=== PATIENT | male | born 1940 | race Hispanic/Latino ===

== ENCOUNTER 2017-08-02 21:30 | Inpatient (IN) | payer BC, MEDICARE ==
--- NOTE | 2017-08-02 22:05 | ED PDOC ---
Arrival/HPI - General Chief Complaint: Weakness/Neurological Deficit Time Seen by Provider: 08/02/17 21:35 Historian: Patient - History of Present Illness Narrative History of Present Illness (Text): 08/02/17 22:05 A 76 year old male, whose past medical history includes stroke, was brought in by EMS to the emergency department complaining of left sided weakness and numbness that developed 6 hours ago. Patient reports symptoms improved. Patient denies any fever, any other injury or complaints at this time. PMD: Dr. Ward Time/Duration: 4-6 hours Symptom Onset: Sudden Symptom Course: Unchanged Activities at Onset: Rest Context: Home Past Medical History - Provider Review Nursing Documentation Reviewed: Yes - Infectious Disease Hx of Infectious Diseases: None - Tetanus Immunization Tetanus Immunization: Unknown - Cardiac Hx Hypertension: Yes - Neurological HX Cerebrovascular Accident: Yes - HEENT Other/Comment: uses reading glasses - Endocrine/Metabolic Hx Diabetes Mellitus Type 1: Yes - Musculoskeletal/Rheumatological Hx Falls: No - Psychiatric Hx Substance Use: No - Surgical History Hx Cardiac Catheterization: Yes Hx Open Heart Surgery: Yes (2007) - Anesthesia Hx Anesthesia Reactions: No Hx Malignant Hyperthermia: No - Suicidal Assessment Feels Threatened In Home Enviroment: No Family/Social History - Physician Review Nursing Documentation Reviewed: Yes Family/Social History: No Known Family HX Smoking Status: Never Smoked Hx Alcohol Use: No Hx Substance Use: No Allergies/Home Meds Allergies/Adverse Reactions: Allergies No Known Allergies Allergy (Verified 10/15/13 22:17) Home Medications: Home Meds Medication Instructions Recorded Confirmed Glipizide 10 mg PO BID 10/16/13 08/02/17 MetFORMIN [glucoPHAGE] 1,000 mg PO BID 10/16/13 08/02/17 Metoprolol Tartrate 25 mg PO DAILY 10/16/13 08/02/17 Simvastatin 40 mg PO DAILY 10/16/13 08/02/17 Clopidogrel [Plavix] 75 mg PO DAILY 07/14/14 08/02/17 Insulin Detemir [Levemir] 20 units SQ DIN 08/02/17 08/02/17 Losartan [Cozaar] 25 mg PO DAILY 08/02/17 08/02/17 Review of Systems - Physician Review All systems were reviewed & negative as marked: Yes - Review of Systems Constitutional: absent: Fevers Neurological: Other (left sided weakness and numbness) Physical Exam Vital Signs Reviewed: Yes Vital Signs Temp Pulse Resp BP Pulse Ox 08/03/17 00:23 98.5 F 88 18 155/81 H 96 08/02/17 22:55 85 20 170/99 H 94 L 08/02/17 21:31 98.1 F 101 H 18 177/97 H 94 L Temperature: Afebrile Blood Pressure: Hypertensive Pulse: Tachycardic Respiratory Rate: Normal Appearance: Positive for: Well-Appearing, Non-Toxic, Comfortable Pain Distress: None Mental Status: Positive for: Alert and Oriented X 3 Finger Stick Blood Glucose: 254 - Systems Exam Head: Present: Atraumatic, Normocephalic Pupils: Present: PERRL Extroacular Muscles: Present: EOMI Conjunctiva: Present: Normal Mouth: Present: Moist Mucous Membranes Neck: Present: Normal Range of Motion Respiratory/Chest: Present: Clear to Auscultation, Good Air Exchange. No: Respiratory Distress, Accessory Muscle Use Cardiovascular: Present: Regular Rate and Rhythm, Normal S1, S2. No: Murmurs Abdomen: Present: Normal Bowel Sounds. No: Tenderness, Distention, Peritoneal Signs Back: Present: Normal Inspection Upper Extremity: Present: Normal Inspection. No: Cyanosis, Edema Lower Extremity: Present: Normal Inspection. No: Edema Neurological: Present: GCS=15, CN II-XII Intact, Speech Normal, Motor Func Grossly Intact, Normal Sensory Function, Normal Cerebellar Funct, Norm Deep Tendon Reflexes, Gait Normal, Memory Normal Skin: Present: Warm, Dry, Normal Color. No: Rashes Psychiatric: Present: Alert, Oriented x 3, Normal Insight, Normal Concentration Medical Decision Making ED Course and Treatment: 08/02/17 22:03 Impression: A 76 year old male with left sided weakness and numbness. Plan: -- EKG -- chest xray -- CT head -- labs -- Reassess and disposition Prior Visits: Notes and results from previous visits were reviewed. Patient last reported to the emergency department on 07/14/14 for evaluation of increased slurred speech and expressive aphasia. Progress Notes: EKG: Ordered, reviewed, and independently interpreted the EKG. Rate : 90 BPM Rhythm : NSR Interpretation : Nonspecific ST/T wave changes Comparison : No previous EKG for comparison. Addendum created by Ashleigh Harrell MD on 08/02/2017 10:15 PM Eastern Time ([place] & [place]) THIS REPORT CONTAINS FINDINGS THAT MAY BE CRITICAL TO PATIENT CARE. The findings were verbally communicated via telephone conference with Armond Waters at 10:15 PM EDT on 08/02/2017. The findings were acknowledged and understood. Initial Report created on 08/02/2017 10:04 PM Eastern Time ([place] & [place]) CT Head Without Intravenous Contrast FINDINGS: Brain: No acute intracranial hemorrhage. Age-appropriate periventricular white matter disease. No edema. Ventricles: Age-appropriate ventriculomegaly. Bones: No acute displaced fracture. Sinuses: Unremarkable as visualized. No acute sinusitis. Mastoid air cells: Unremarkable as visualized. No mastoid effusion. IMPRESSION: No acute intracranial hemorrhage, or suspicious mass effect. Dictated and Authenticated by: Ashleigh Harrell MD 08/02/2017 10:04 PM Eastern Time ([place] & [place]) 08/03/17 22:30 Chest xray: No active disease, interpreted by me. - Lab Interpretations Lab Results: 08/02/17 21:50 08/02/17 21:50 Lab Results 08/02/17 22:25: Blood Type Confirm B POSITIVE 08/02/17 21:50: Blood Type B POSITIVE, Antibody Screen Negative, BBK History Checked No verified bt 08/02/17 21:50: Sodium 136, Potassium 4.2, Chloride 99, Carbon Dioxide 24, Anion Gap 17, BUN 12, Creatinine 0.7 L, Est GFR ( Amer) > 60, Est GFR ( Non-Af Amer) > 60, Random Glucose 254 H, Calcium 9.3, Total Bilirubin 0.6, AST 26, ALT 49, Alkaline Phosphatase 80, Troponin I < 0.01, Total Protein 7.0, Albumin 4.3, Globulin 2.8, Albumin/Globulin Ratio 1.5, Triglycerides 156, Cholesterol 128 L, LDL Cholesterol Direct 56, HDL Cholesterol 42 08/02/17 21:50: PT 11.7, INR 1.08, APTT 26.6 08/02/17 21:50: WBC 7.5, RBC 4.85, Hgb 14.5, Hct 41.3 L, MCV 85.2, MCH 29.9, MCHC 35.1, RDW 12.7, Plt Count 228, MPV 9.3, Gran % 70.8 H, Lymph % (Auto) 21.1 L, [place] % (Auto) 6.1 H, Eos % (Auto) 1.9, Baso % (Auto) 0.1, Gran # 5.32, Lymph # 1.6, [place] # 0.5, Eos # 0.1, Baso # 0.01 I have reviewed the lab results: Yes - RAD Interpretation Radiology Orders: 08/02/17 21:36 HEAD W/O (CODE STROKE) [CT] Stat CHEST ONE VIEW [RAD] Stat - EKG Interpretation Interpreted by ED Physician: Yes Type: 12 lead EKG - Medication Orders Current Medication Orders: Aspirin (Aspirin Chewable) 81 mg PO DAILY YASMEEN Atorvastatin Calcium (Lipitor) 20 mg PO DIN YASMEEN Clopidogrel Bisulfate (Plavix) 75 mg PO DAILY YASMEEN Insulin Detemir (Levemir) 20 unit SC HS YASMEEN Insulin Human Lispro (Humalog Med) 0 units SC ACHS YASMEEN PRN Reason: Protocol Losartan Potassium (Cozaar) 25 mg PO DAILY YASMEEN Metoprolol Tartrate (Lopressor) 25 mg PO DAILY YASMEEN Pantoprazole Sodium (Protonix Inj) 40 mg IVP DAILY YASMEEN Discontinued Medications Aspirin (Aspirin) 325 mg PO STAT STA Stop: 08/02/17 22:49 Last Admin: 08/02/17 22:59 Dose: 325 mg - Scribe Statement The provider has reviewed the documentation as recorded by the Bossmanibjordon Qiu All medical record entries made by the Bossmanibjordon were at my direction and personally dictated by me. I have reviewed the chart and agree that the record accurately reflects my personal performance of the history, physical exam, medical decision making, and the department course for this patient. I have also personally directed, reviewed, and agree with the discharge instructions and disposition. Disposition/Present on Arrival - Present on Arrival Any Indicators Present on Arrival: No History of DVT/PE: No History of Uncontrolled Diabetes: Yes Urinary Catheter: No History of Decub. Ulcer: No History Surgical Site Infection Following: None - Disposition Have Diagnosis and Disposition been Completed?: Yes Diagnosis: Weakness Disposition: HOSPITALIZED Disposition Time: 12:00 Condition: FAIR
--- NOTE | 2017-08-02 22:05 | CT ---
EXAM: CT Head Without Intravenous Contrast CLINICAL HISTORY: 76 years old, male; Signs and symptoms; Weakness, extremity; Bilateral; Additional info: Code stroke TECHNIQUE: Axial computed tomography images of the head/brain without intravenous contrast. All CT scans at this facility use one or more dose reduction techniques, viz.: automated exposure control; ma/kV adjustment per patient size (including targeted exams where dose is matched to indication; i.e. head); or iterative reconstruction technique. COMPARISON: No relevant prior studies available. FINDINGS: Brain: No acute intracranial hemorrhage. Age-appropriate periventricular white matter disease. No edema. Ventricles: Age-appropriate ventriculomegaly. Bones: No acute displaced fracture. Sinuses: Unremarkable as visualized. No acute sinusitis. Mastoid air cells: Unremarkable as visualized. No mastoid effusion. IMPRESSION: No acute intracranial hemorrhage, or suspicious mass effect.
[2017-08-02 22:10] LABS: BASO # 0.01 K/mm3 (0.0-2.0); BASO % 0.1 % (0.0-3.0); EOS # 0.1 (0.0-0.7); EOS % 1.9 % (1.5-5.0); GRAN # 5.32 (1.4-6.5); GRAN % 70.8 % (50.0-68.0); HEMATOCRIT 41.3 % (42.0-52.0); LYMPH # 1.6 (1.2-3.4); LYMPH % 21.1 % (22.0-35.0); MEAN CELL VOLUME 85.2 fl (80.0-105.0); MEAN CORPUSCULAR HEMOGLOBIN 29.9 pg (25.0-35.0); MEAN CORPUSCULAR HGB CONC 35.1 g/dl (31.0-37.0); MEAN PLATELET VOLUME 9.3 fl (7.0-11.0); MONO # 0.5 (0.1-0.6); MONO % 6.1 % (1.0-6.0); RED CELL DISTRIBUTION WIDTH 12.7 % (11.5-14.5); WHITE BLOOD COUNT 7.5 10^3/ul (4.5-11.0)
[2017-08-02 22:23] LABS: ALB/GLOB RATIO 1.5 (1.1-1.8); ALKALINE PHOSPHATASE 80 U/L (38-126); ALT/SGPT 49 U/L (7-56); AST/SGOT 26 U/L (17-59); BILIRUBIN,TOTAL 0.6 mg/dL (0.2-1.3); BLOOD UREA NITROGEN 12 mg/dL (7-21); CALCIUM 9.3 mg/dL (8.4-10.5); CARBON DIOXIDE 24 mmol/L (21-33); CHLORIDE 99 mmol/L (98-107); CHOLESTEROL 128 mg/dL (130-200); GFR AFRICAN-AMERICAN > 60; GLUCOSE,RANDOM 254 mg/dL (70-110); POTASSIUM 4.2 mmol/L (3.6-5.0); SODIUM 136 mmol/L (132-148)
[2017-08-02 22:32] LABS: INR 1.08 (0.93-1.08); PARTIAL THROMBOPLASTIN TIME 26.6 Seconds (23.7-30.8)
[2017-08-02 22:38] LABS: TROPONIN I < 0.01 ng/mL
[2017-08-02 23:24] VITALS: BMI 31.8
[2017-08-02] MEDS ORDERED: Insulin Detemir 100 units/ml Vial (Levemir) SC SCH (23:45)
--- NOTE | 2017-08-02 23:52 | CP.PCM.HP ---
<SULMEAN RHODES - Last Filed: 08/03/17 01:42> History of Present Illness - History of Present Illness History of Present Illness: CC: Left arm and leg weakness Pt is a 76 yo male with PMH of multiple CVA and DM presents with c/o left arm and leg weakness as well as gait instability. Pt states symptoms began around 4 pm on 08/02/17. Pt was unable to ambulate or stand without losing balance due to left leg weakness. However, weakness got worse by 8:30 pm and called for an ambulance. Pt believed the symptoms would subside with rest. Pt denied any facial droop, slurring of speech, aphasia, dysphagia, or vision changes. At time of examination in the ED, pt states that he felt like his strength had somewhat returned. Pt denied CP, SOB, n/v/d, constipation, abdominal pain, SHIRLEY, dizziness, or fatigue. 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 Retired police inspector. FHx: Cerebral hemorrhage Present on Admission - Present on Admission Any Indicators Present on Admission: No Review of Systems - Review of Systems Review of Systems: 12 point ROS reviewed and is negative other than what is stated in HPI. Past Patient History - Infectious Disease Hx of Infectious Diseases: None - Tetanus Immunizations Tetanus Immunization: Unknown - Past Social History Smoking Status: Never Smoked - CARDIAC Hx Hypertension: Yes - NEUROLOGICAL HX Cerebrovascular Accident: Yes - HEENT Other/Comment: uses reading glasses - ENDOCRINE/METABOLIC Hx Diabetes Mellitus Type 1: Yes - MUSCULOSKELETAL/RHEUMATOLOGICAL Hx Falls: No - PSYCHIATRIC Hx Substance Use: No - SURGICAL HISTORY Hx Cardiac Catheterization: Yes Hx Open Heart Surgery: Yes (2007) - ANESTHESIA Hx Anesthesia Reactions: No Hx Malignant Hyperthermia: No Meds Allergies/Adverse Reactions: Allergies Allergy/AdvReac Type Severity Reaction Status Date / Time No Known Allergies Allergy Verified 10/15/13 22:17 Physical Exam - Constitutional Appears: No Acute Distress - Head Exam Head Exam: ATRAUMATIC, NORMOCEPHALIC - Eye Exam Eye Exam: EOMI, PERRL - ENT Exam ENT Exam: Mucous Membranes Moist - Neck Exam Neck exam: Positive for: Full Rom. Negative for: Lymphadenopathy, Tenderness, Thyromegaly - Respiratory Exam Respiratory Exam: Clear to Auscultation Bilateral. absent: Rales, Rhonchi, Wheezes - Cardiovascular Exam Cardiovascular Exam: RRR, +S1, +S2. absent: Diastolic murmur, Gallop, Rubs, Systolic Murmur - GI/Abdominal Exam GI & Abdominal Exam: Soft. absent: Distended, Guarding, Rebound, Rigid, Tenderness - Neurological Exam Neurological exam: Alert, Oriented x3 - Psychiatric Exam Psychiatric exam: Normal Affect, Normal Mood - Skin Skin Exam: Dry, Intact, Normal Color, Petechiae, Warm Additional comments: Purpura Results - Vital Signs Recent Vital Signs: Last Vital Signs Temp 98.1 F 08/02/17 21:31 Pulse 85 08/02/17 22:55 Resp 20 08/02/17 22:55 BP 170/99 H 08/02/17 22:55 Pulse Ox 94 L 08/02/17 22:55 - Labs Result Diagrams: 08/02/17 21:50 08/02/17 21:50 Assessment & Plan - Assessment and Plan (Free Text) Assessment: 76 yo male with PMH of CVA and DM presents with left sided weakness and will be evaluated and treated for TIA. Plan: 1. TIA - CT head showed no acute process - EKG showed NSR - Troponin negative x1 - Neuro consulted - F/u Lipid panel and A1C - Cont Home meds: Plavix, Simvastatin - ASA 2. DM - Blood Glucose 254 - Levemir 20 units HS - ISS - Accuchecks ACHS - Hold metoprolol and glipizide 3. HTN - Cont home med: Losartan and Lopressor GI/DVT PPx - Protonix - SCDs Pt seen and discussed with Dr. Cordova. Tito Rhodes, PGY1 NIHSS Scale ([place]) Time Performed: 23:30 - How Severe is the Stoke 24 hours post onset S/S Level of Consciousness: 0=Alert LOC to Questions: 0=Both comments correct LOC to commands: 0=Obeys both correctly Best Gaze: 0=Normal Visual: 0=No visual loss Facial: 0=Normal Motor Arm - Left: 0=No drift Motor Arm - Right: 0=No drift Motor Leg - Left: 0=No drift Motor Leg - Right: 0=No drift Limb Ataxia: 0=Absent Sensory: 0=Normal Best Language: 0=No aphasia Dysarthia: 0=Normal articulation Extinction & Inattention (Neglect): 0=Normal, no object Score: 0 Risk Level: No Stroke Risk <Giovanna Cordova - Last Filed: 08/03/17 04:55> Results - Vital Signs Recent Vital Signs: Last Vital Signs Temp 97.7 F 08/03/17 01:27 Pulse 89 08/03/17 01:27 Resp 18 08/03/17 01:27 BP 180/96 H 08/03/17 01:27 Pulse Ox 96 08/03/17 00:23 - Labs Result Diagrams: 08/02/17 21:50 08/02/17 21:50 Attending/Attestation - Attestation I have personally seen and examined this patient.: Yes I have fully participated in the care of the patient.: Yes I have reviewed all pertinent clinical information: Yes Notes (Text): 08/03/17 03:39 Pt has no purpura.. NIHSS scale was initially performed by ER MD at 21:35 PM when pt was seen in the ER Since pt's symptoms have resolved,he is not a candidate for TPA. Agree with notes and orders placed 08/03/17 04:55
[2017-08-03 06:37] LABS: HEMATOCRIT 40.4 % (42.0-52.0); MEAN CELL VOLUME 84.3 fl (80.0-105.0); MEAN CORPUSCULAR HEMOGLOBIN 30.1 pg (25.0-35.0); MEAN CORPUSCULAR HGB CONC 35.6 g/dl (31.0-37.0); MEAN PLATELET VOLUME 9.5 fl (7.0-11.0); RED CELL DISTRIBUTION WIDTH 12.9 % (11.5-14.5); WHITE BLOOD COUNT 9.7 10^3/ul (4.5-11.0)
[2017-08-03 06:46] LABS: ALB/GLOB RATIO 1.5 (1.1-1.8); ALKALINE PHOSPHATASE 71 U/L (38-126); ALT/SGPT 49 U/L (7-56); AST/SGOT 26 U/L (17-59); BILIRUBIN,TOTAL 0.7 mg/dL (0.2-1.3); BLOOD UREA NITROGEN 11 mg/dL (7-21); CALCIUM 9.4 mg/dL (8.4-10.5); CARBON DIOXIDE 28 mmol/L (21-33); CHLORIDE 100 mmol/L (98-107); GFR AFRICAN-AMERICAN > 60; GLUCOSE,RANDOM 257 mg/dL (70-110); MAGNESIUM 1.4 mg/dL (1.7-2.2); PHOSPHOROUS 3.9 mg/dL (2.5-4.5); POTASSIUM 4.1 mmol/L (3.6-5.0); SODIUM 138 mmol/L (132-148); TOTAL PROTEIN 6.8 g/dL (5.8-8.3)
[2017-08-03] MEDS ORDERED: Magnesium Sulfate 2 GM in Sodium Chloride 0.9% 100 ML IVPB ONE (06:49)
--- NOTE | 2017-08-03 08:39 | RAD ---
PROCEDURE: CHEST RADIOGRAPH, 1 VIEW HISTORY: code stroke COMPARISON: 07/14/2014 FINDINGS: LUNGS: Clear. PLEURA: No pneumothorax or pleural fluid seen. CARDIOVASCULAR: Normal. OSSEOUS STRUCTURES: No significant abnormalities. VISUALIZED UPPER ABDOMEN: Normal. OTHER FINDINGS: None. IMPRESSION: No active disease.
[2017-08-03] MEDS: Insulin Lispro (humaLOG) MEDIUM Coverage SC SCH ×4 (09:38→21:29)
[2017-08-03] MEDS ORDERED: Insulin Detemir 100 units/ml Vial (Levemir) SC SCH (10:42)
--- NOTE | 2017-08-03 13:51 | US ---
PROCEDURE: Bilateral carotid artery duplex ultrasound HISTORY: Carotid stenosis TIA PHYSICIAN(S): Aakash Garcia MD. TECHNIQUE: Duplex sonography and color-flow Doppler were used to evaluate the carotid bifurcations and limited segments of the vertebral arteries bilaterally. FINDINGS: There is mild smooth echogenic plaque noted at the carotid bifurcations bilaterally. The peak systolic velocity in the proximal right internal carotid artery is 79 cm/sec. This corresponds to a 20 to 39% proximal right ICA stenosis. Normal systolic velocities are noted in the proximal right external carotid artery. There is antegrade flow in the large right vertebral artery. The peak systolic velocity in the proximal left internal carotid artery is 58 cm/sec. This corresponds to a 20 to 39% proximal left ICA stenosis. Mildly elevated systolic velocities are noted in the proximal left external carotid artery. There is blunted antegrade flow in the small left vertebral artery. IMPRESSION: 1. Bilateral 20-39% proximal ICA stenoses. 2. Antegrade flow in both vertebral arteries.
--- NOTE | 2017-08-03 15:22 | CARD ---
APPROVED REPORT EXAM: Two-dimensional and M-mode echocardiogram with Doppler and color Doppler. INDICATION CVA/TIA HX OF CABG 2D DIMENSIONS Left Atrium (2D)4.9 (1.6-4.0cm)IVSd1.5 (0.7-1.1cm) LVDd5.0 (3.9-5.9cm)LVOT Diameter2.1 (1.8-2.4cm) PWd1.5 (0.7-1.1cm)LVDs3.4 (2.5-4.0cm) FS (%) 31.9 %LVEF (%)59.7 (>50%) M-Mode DIMENSIONS Aortic Root3.90 (2.2-3.7cm)Aortic Cusp Exc.0.70 (1.5-2.0cm) Aortic Valve AoV Peak Uzbmljif531.0cm/sAoV VTI59.7cmAO Peak GR.29mmHg LVOT Peak Ipgkeldv94.2cm/sLVOT VTI20.30cmAO Mean GR.16mmHg JOSEFA (VMAX)1.38qw2DHX (VTI)1.18cm2 Mitral Valve MV E Hceapvtr77.9cm/sMV A Zqdvzovi505.0cm/sE/A ratio0.7 TDI Lateral E' Peak V6.82cm/sMedial E' Peak V4.29cm/sE/Lateral E'12.3 E/Medial E'19.6 Pulmonary Valve PV Peak Lgdgpuil89.1cm/sPV Peak Grad.2mmHg Tricuspid Valve TR Peak Boygzfez043wt/sRAP [id number] Peak Gr.17mmHg [id number] LEFT VENTRICLE The left ventricle is normal size. There is mild concentric left ventricular hypertrophy. The left ventricular ejection fraction is within the normal range. Mild Septal hypokinesis Transmitral Doppler flow pattern is Grade I-abnormal relaxation pattern. RIGHT VENTRICLE The right ventricle is normal size. There is normal right ventricular wall thickness. The right ventricular systolic function is normal. ATRIA The left atrium is mildly dilated. The right atrium size is normal. AORTIC VALVE The aortic valve is moderately sclerotic. There is mild to moderate valvular aortic stenosis. MITRAL VALVE Mitral annular calcification is moderate. There is no mitral valve regurgitation noted. GREAT VESSELS The aortic root is mildly enlarged. <Conclusion> The left ventricle is normal size. There is mild concentric left ventricular hypertrophy. The left ventricular ejection fraction is within the normal range. Mild Septal hypokinesis Transmitral Doppler flow pattern is Grade I-abnormal relaxation pattern. There is mild to moderate valvular aortic stenosis.
--- NOTE | 2017-08-03 18:41 | MRI ---
PROCEDURE: MRI BRAIN WITHOUT CONTRAST HISTORY: TIA r/o CVA COMPARISON: Comparison is made to the previous study dated 07/15/2014 TECHNIQUE: Multiplanar, multisequence MR images of the brain were obtained without intravenous contrast enhancement. FINDINGS: HEMORRHAGE: None DWI: 1 centimeter focal diffusion restriction at the right thalamus consistent with acute infarction. BRAIN PARENCHYMA: No mass effect or edema. Mild atrophy. Moderate white matter changes are again noted suggestive of chronic microvascular ischemic disease. Small foci of encephalomalacia are also noted in both basal ganglia suggestive of old lacunar infarctions VENTRICLES: Unremarkable. No hydrocephalus. CRANIUM: Unremarkable. ORBITS: Grossly unremarkable. PARANASAL SINUSES/MASTOIDS: Clear VASCULAR SYSTEM: Skull base flow voids intact. OTHER FINDINGS: None. IMPRESSION: 1 centimeter focal diffusion restriction at the right thalamus consistent with acute infarction. Volume loss and moderate white matter changes are again noted.
--- NOTE | 2017-08-03 22:05 | CARD ---
APPROVED REPORT EKG Measurement Heart [id number] <Conclusion> Normal sinus rhythm Possible Left atrial enlargement Inferior infarct, age undetermined Abnormal ECG
--- NOTE | 2017-08-03 22:07 | CON ---
NEUROLOGY CONSULTATION REPORT REASON FOR CONSULTATION: Left-sided weakness. HISTORY OF PRESENT ILLNESS: The patient is a 76-year-old male who came to the emergency room with weakness on the left side. really having difficulty with walking. The patient has a history of stroke in the past. However, he recovered from it completely. The patient's symptoms started around 4 p.m. The patient was unable to ambulate without loosing balance and since his weakness was not getting better, he decided to come to the emergency room. He got to the hospital after 8:30 p.m. The patient denies any difficulty with swallowing. He says he thinks his weakness of the left arm is better; however, he is not sure about his left lower leg. Denies any other complaints. REVIEW OF SYSTEMS: Denies any headache, dizziness, chest pain, shortness of breath, abdominal pain, constipation, diarrhea, dysuria, cough, sputum production, hallucination, or skin rash. PAST MEDICAL HISTORY: Include cerebrovascular accident, diabetes mellitus. MEDICATION AT HOME: Include Cozaar, Plavix, simvastatin, metoprolol, metformin, insulin, and glipizide. ALLERGIES: NO KNOWN DRUG ALLERGIES. SOCIAL HISTORY: The patient denies smoking, use of alcohol, or illicit drugs. FAMILY HISTORY: Reviewed and noncontributory to the case. PHYSICAL EXAMINATION: GENERAL: The patient is an elderly male, lying in the bed, in no acute distress. VITAL SIGNS: His blood pressure is 195/105, heart rate is 99 per minute, breathing at a rate of 16 per minute, and temperature is 97.8 degrees Fahrenheit. HEENT: Head, normocephalic and atraumatic. NECK: Supple. There is no carotid bruit. LUNGS: Clear. CARDIOVASCULAR: S1 and S2 audible. No murmurs. ABDOMEN: Soft and nontender. Bowel sounds are present. NEUROLOGIC: Mental status; the patient is awake, alert, and oriented to place, year and person. Speech is fluent. Naming and repetition are normal. Memory and cognition appears intact. Cranial nerve examination: Pupils are 3 mm bilaterally reactive to light. Visual cohn are full . Extraocular movements are intact. There is questionable decrease in the nasolabial fold on the left side. Motor examination: Tone is normal. Power in the upper extremities are 5/5. Power in the lower extremity on the right is 5/5, on the left is 4/5. Reflexes are 1+ and symmetrical with absent ankle jerk. Planters are downgoing bilaterally. Cerebellar examination: Uhtrwe-cu-slui showed no dysmetria. Gait is deferred at the moment. Sensory Examination: Intact to soft touch and pinprick. There is mild decrease vibration in feet. LABORATORY DATA: Reviewed. CT scan of the head shows no acute intracranial hemorrhage or suspicious mass effect. His WBC is 9.7, hemoglobin is 14.4, hematocrit of 40.4, and platelets of 227. His sodium is 138, potassium 4.1, chloride of 100, carbon dioxide content 28, BUN of 11, creatinine of 0.7, and glucose of 257. His INR is 1.08. IMPRESSION: 1. New-onset of left-side weakness, which has improved, but not completely resolved. This may have been secondary to a small new cerebrovascular accident. 2. History of old cerebrovascular accident. RECOMMENDATIONS: 1. The patient to have MRI of the brain without contrast. 2. The patient also to have a carotid Doppler study and an echocardiogram. 3. The patient was on Plavix, which is to be continued. A baby aspirin is to be added. 4. The patient was started on statin, which is to be continued. 5. The patient was not a candidate for tPA administration because of out of time as well as resolving symptoms. 6. The patient to have physical therapy and occupational therapy evaluation. 7. Please continue with the treatment and if blood pressure remains on a higher side, consider increasing the dose of antihypertensive medication and try to control the blood pressure. 8. Please continue with the treatment and supportive care. Thank you for the opportunity to participate in the care of this patient. Jaime Pearson MD
[2017-08-04] MEDS: Pantoprazole 40 mg EC Tab PO SCH (05:20)
[2017-08-04] MEDS ORDERED: Insulin Detemir 100 units/ml Vial (Levemir) SC SCH ×2 (06:40→09:13)
--- NOTE | 2017-08-04 06:54 | CP.PCM.PN ---
<Yaritza Ocampo - Last Filed: 08/04/17 15:37> Subjective - Date & Time of Evaluation Date of Evaluation: 08/04/17 Time of Evaluation: 06:54 - Subjective Subjective: Hospitalist Service Progress Note: Patient seen and examined at bedside. Per nursing, no acute events overnight. Patient is doing well, offers no complaints at this time. States that speech is slowing improving, left sided weakness also improving. Denies headaches, dizziness, cp, palpitations, sob, abdominal pain, urinary symptoms, changes in bowel habits. Objective - Vital Signs/Intake and Output Vital Signs (last 24 hours): Temp Pulse Resp BP Pulse Ox 98.3 F 76 18 162/90 H 95 08/03/17 16:00 08/03/17 22:00 08/03/17 16:00 08/03/17 16:00 08/03/17 16:00 Intake and Output: 08/03/17 08/04/17 18:59 06:59 Intake Total 540 300 Output Total 600 550 Balance -60 -250 - Medications Medications: Current Medications Aspirin (Aspirin Chewable) 81 mg PO DAILY [facility] Last Admin: 08/03/17 09:34 Dose: 81 mg Atorvastatin Calcium (Lipitor) 40 mg PO DIN [facility], [facility] Last Admin: 08/03/17 17:56 Dose: 40 mg Clopidogrel Bisulfate (Plavix) 75 mg PO DAILY [facility], [facility] Last Admin: 08/03/17 09:36 Dose: 75 mg Enoxaparin Sodium (Lovenox) 30 mg SC DAILY [facility], [facility]1983 PRN Reason: Protocol Insulin Detemir (Levemir) 27 unit SC HS [facility]1983 Insulin Human Lispro (Humalog Med) 0 units SC [facility], [facility]–1983 PRN Reason: Protocol Last Admin: 08/03/17 21:29 Dose: Not Given Losartan Potassium (Cozaar) 50 mg PO DAILY [facility] Last Admin: 08/03/17 12:18 Dose: 25 mg Metoprolol Tartrate (Lopressor) 50 mg PO BID [facility] Last Admin: 08/03/17 17:56 Dose: 50 mg Pantoprazole Sodium (Protonix Ec Tab) 40 mg PO 0600 [facility] Last Admin: 08/04/17 05:20 Dose: 40 mg Pneumococcal Polyvalent Vaccine (Pneumovax 23 Vaccine) 0.5 ml IM .ONCE ONE Stop: 08/05/17 10:01 - Labs Labs: 08/03/17 06:00 08/03/17 06:00 PT 11.7 Seconds (9.9-11.8) 08/02/17 21:50 INR 1.08 (0.93-1.08) 08/02/17 21:50 APTT 26.6 Seconds (23.7-30.8) 08/02/17 21:50 - Constitutional Appears: Well, No Acute Distress - Head Exam Head Exam: ATRAUMATIC, NORMAL INSPECTION - Eye Exam Eye Exam: EOMI, Normal appearance Pupil Exam: NORMAL ACCOMODATION - ENT Exam ENT Exam: Mucous Membranes Moist - Neck Exam Neck Exam: Full ROM - Respiratory Exam Respiratory Exam: Clear to Ausculation Bilateral, NORMAL BREATHING PATTERN. absent: Rales, Rhonchi, Wheezes - Cardiovascular Exam Cardiovascular Exam: REGULAR RHYTHM, +S1, +S2 - GI/Abdominal Exam GI & Abdominal Exam: Soft, Normal Bowel Sounds. absent: Guarding, Rigid, Tenderness, Rebound - Extremities Exam Extremities Exam: Full ROM, Normal Inspection. absent: Calf Tenderness - Back Exam Back Exam: NORMAL INSPECTION - Neurological Exam Neurological Exam: Alert, Awake, Oriented x3 Neuro motor strength exam: Left Upper Extremity: 5, Right Upper Extremity: 5, Left Lower Extremity: 5, Right Lower Extremity: 5 - Psychiatric Exam Psychiatric exam: Normal Affect, Normal Mood - Skin Skin Exam: Dry, Normal Color, Warm Assessment and Plan - Assessment and Plan (Free Text) Assessment: 76 year old male with past medical history of prior CVA, HTN, DM, quintuple CABG presented to [facility] for left sided weakness and slurred speech. CT head showed no acute intracranial pathology. Brain MRI showed 1 cm focal diffusion restriction at the R thalamus c/w acute infarction. Plan: 1. Acute Ischemic CVA -Stable, afebrile -Brain MRI showing 1cm focal diffusion restriction at the right thalamus c/w acute infarction -Carotid US showing bilateral 20-39% proximal ICA stenosis -Echo showing normal LVEF, mild septal hypokinesis, grade I abnormal relaxation pattern -Continue ASA and plavix -Continue Atorvastatin 40mg -Neurology on consult, f/u recommendations -PT suggesting acute rehab for disposition; patient does not wish to go to acute rehab -Discussed in length with the patient the benefits of acute rehab and the risks of not going to acute rehab however patient still insisting he does not wish to go; Patient is requesting outpatient physical therapy at this time -Continue PT/OT/ST 2. Uncontrolled Hypertension -BPs still elevated -Continue Lopressor 50mg BID -Continue Cozaar 50mg BID -Vital signs q4H, will continue to monitor 3. Diabetes Mellitus Type 2 -CBG 200-280s -Levemir increased to 30 units HS -Continue Medium dose ISS -Accuchecks ACHS -HgA1C 10.0 -Diabetes education nurse to speak with patient -Crop Adjuster referral ordered GI/DVT ppx -Protonix 40mg PO daily -Lovenox 30mg SC <Huma Powers - Last Filed: 08/04/17 16:31> Objective - Vital Signs/Intake and Output Vital Signs (last 24 hours): Temp Pulse Resp BP Pulse Ox 97.7 F 78 20 168/86 H 79 L 08/04/17 06:00 08/04/17 06:00 08/04/17 06:00 08/04/17 06:00 08/04/17 06:00 Intake and Output: 08/04/17 08/04/17 06:59 18:59 Intake Total 300 0 Output Total 550 450 Balance -250 -450 - Medications Medications: Current Medications Aspirin (Aspirin Chewable) 81 mg PO DAILY [facility] Last Admin: 08/04/17 10:13 Dose: 81 mg Atorvastatin Calcium (Lipitor) 40 mg PO DIN [facility] Last Admin: 08/03/17 17:56 Dose: 40 mg Clopidogrel Bisulfate (Plavix) 75 mg PO DAILY [facility] Last Admin: 08/04/17 10:13 Dose: 75 mg Enoxaparin Sodium (Lovenox) 30 mg SC DAILY [facility] PRN Reason: Protocol Last Admin: 08/04/17 10:12 Dose: 30 mg Insulin Detemir (Levemir) 30 unit SC HS [facility] Insulin Human Lispro (Humalog Med) 0 units SC [facility] PRN Reason: Protocol Last Admin: 08/04/17 12:26 Dose: 5 units Losartan Potassium (Cozaar) 50 mg PO DAILY [facility] Last Admin: 08/04/17 10:13 Dose: 50 mg Metoprolol Tartrate (Lopressor) 50 mg PO BID [facility] Last Admin: 08/04/17 10:13 Dose: 50 mg Pantoprazole Sodium (Protonix Ec Tab) 40 mg PO 0600 [facility] Last Admin: 08/04/17 05:20 Dose: 40 mg Pneumococcal Polyvalent Vaccine (Pneumovax 23 Vaccine) 0.5 ml IM .ONCE ONE Stop: 08/05/17 10:01 - Labs Labs: 08/04/17 07:45 08/04/17 07:45 PT 11.7 Seconds (9.9-11.8) 08/02/17 21:50 INR 1.08 (0.93-1.08) 08/02/17 21:50 APTT 26.6 Seconds (23.7-30.8) 08/02/17 21:50 Attending/Attestation - Attestation I have personally seen and examined this patient.: Yes I have fully participated in the care of the patient.: Yes I have reviewed all pertinent clinical information, including history, physical exam and plan: Yes Notes (Text): 08/04/17 16:21 attending note; Patient seen and examined with resident. Patient is a 76 year old male with past medical history of prior CVA, HTN, DM, CABG presented to [facility] for left sided weakness and slurred speech. CT head showed no acute intracranial pathology. Brain MRI showed 1 cm focal diffusion restriction at the R thalamus c/w acute infarction. Dysarthria is improving; follow-up with speech therapy. Carotid Doppler showed 20-39% stenosis. Echo showed normal ejection fraction. Continue aspirin, Plavix, Lipitor. Hypertension; uncontrolled. Medications increased. Monitor closely. Diabetes; uncontrolled. Levemir dosage increased. Dietary education given. Patient was educated by diabetic nurse. Patient is strongly advised to follow- up fingerstick closely at home.Noncompliance with checking blood sugar at home. Physical therapy evaluation appreciated. Acute rehabilitation recommended. Patient is currently refusing to go to rehabilitation. Case discussed with outsole caser in detail for discharge planning. Diagnosis; Acute right thalamic CVA Dysarthria Uncontrolled hypertension Uncontrolled diabetes 08/04/17 16:27 08/04/17 16:29
[2017-08-04 07:51] LABS: HEMATOCRIT 45.6 % (42.0-52.0); MEAN CELL VOLUME 85.7 fl (80.0-105.0); MEAN CORPUSCULAR HEMOGLOBIN 29.9 pg (25.0-35.0); MEAN CORPUSCULAR HGB CONC 34.9 g/dl (31.0-37.0); MEAN PLATELET VOLUME 9.4 fl (7.0-11.0); RED CELL DISTRIBUTION WIDTH 12.9 % (11.5-14.5)
[2017-08-04 08:00] LABS: ALB/GLOB RATIO 1.5 (1.1-1.8); ALKALINE PHOSPHATASE 80 U/L (38-126); ALT/SGPT 69 U/L (7-56); AST/SGOT 37 U/L (17-59); BILIRUBIN,TOTAL 1.2 mg/dL (0.2-1.3); BLOOD UREA NITROGEN 14 mg/dL (7-21); CALCIUM 9.7 mg/dL (8.4-10.5); CARBON DIOXIDE 26 mmol/L (21-33); CHLORIDE 100 mmol/L (95-110); GFR AFRICAN-AMERICAN > 60; GLUCOSE,RANDOM 235 mg/dL (70-110); MAGNESIUM 1.8 mg/dL (1.7-2.2); PHOSPHOROUS 3.7 mg/dL (2.5-4.5); POTASSIUM 4.2 mmol/L (3.6-5.0); SODIUM 139 mmol/L (132-148); TOTAL PROTEIN 7.8 g/dL (5.8-8.3)
[2017-08-04] MEDS: Enoxaparin 30 mg Syringe SC SCH (10:12)
[2017-08-04] MEDS: Insulin Lispro (humaLOG) MEDIUM Coverage SC SCH ×4 (10:12→21:29)
[2017-08-05] MEDS: Pantoprazole 40 mg EC Tab PO SCH (05:15)
[2017-08-05 07:14] LABS: MEAN CELL VOLUME 85.3 fl (80.0-105.0); MEAN CORPUSCULAR HEMOGLOBIN 29.8 pg (25.0-35.0); MEAN CORPUSCULAR HGB CONC 34.9 g/dl (31.0-37.0); MEAN PLATELET VOLUME 9.3 fl (7.0-11.0); WHITE BLOOD COUNT 9.2 10^3/ul (4.5-11.0)
[2017-08-05 07:33] LABS: ALB/GLOB RATIO 1.4 (1.1-1.8); ALKALINE PHOSPHATASE 76 U/L (38-126); ALT/SGPT 57 U/L (7-56); AST/SGOT 34 U/L (17-59); BILIRUBIN,TOTAL 1.1 mg/dL (0.2-1.3); BLOOD UREA NITROGEN 24 mg/dL (7-21); CALCIUM 9.3 mg/dL (8.4-10.5); CARBON DIOXIDE 23 mmol/L (21-33); CHLORIDE 102 mmol/L (98-107); GFR AFRICAN-AMERICAN > 60; GLUCOSE,RANDOM 255 mg/dL (70-110); MAGNESIUM 1.7 mg/dL (1.7-2.2); PHOSPHOROUS 3.6 mg/dL (2.5-4.5); POTASSIUM 4.1 mmol/L (3.6-5.0); SODIUM 138 mmol/L (132-148); TOTAL PROTEIN 7.1 g/dL (5.8-8.3)
[2017-08-05] MEDS: Insulin Lispro (humaLOG) MEDIUM Coverage SC SCH (08:38)
[2017-08-05 09:43] VITALS: BP 141/84; PULSE 88; RESP 20; TEMP 97.5; O2SAT 98
[2017-08-05] MEDS: Enoxaparin 30 mg Syringe SC SCH (09:45)
[2017-08-05] MEDS ORDERED: Influenza Vaccine 60 mcg/0.5 mL SYR (4YR UP) IM ONE (10:00)
[2017-08-05] MEDS ORDERED: Pneumococcal 23-Valent Vaccine IM ONE (10:00)
--- NOTE | 2017-08-05 12:21 | CP.PCM.DIS ---
<Yaritza Ocampo - Last Filed: 08/05/17 12:52> Provider - Provider Date of Admission: 08/02/17 22:48 Attending physician: Huma Powers MD Primary care physician: Nico Ward MD Consults: Neuro: Lili Time Spent in preparation of Discharge (in minutes): 32 Hospital Course - Lab Results Lab Results: Most Recent Lab Values WBC 9.2 10^3/ul (4.5-11.0) 08/05/17 07:07 RBC 5.04 10^6/uL (3.5-6.1) 08/05/17 07:07 Hgb 15.0 g/dL (14.0-18.0) 08/05/17 07:07 Hct 43.0 % (42.0-52.0) 08/05/17 07:07 MCV 85.3 fl (80.0-105.0) 08/05/17 07:07 MCH 29.8 pg (25.0-35.0) 08/05/17 07:07 MCHC 34.9 g/dl (31.0-37.0) 08/05/17 07:07 RDW 13.0 % (11.5-14.5) 08/05/17 07:07 Plt Count 256 10^3/uL (120.0-450.0) 08/05/17 07:07 MPV 9.3 fl (7.0-11.0) 08/05/17 07:07 Gran % 70.8 % (50.0-68.0) H 08/02/17 21:50 Lymph % (Auto) 21.1 % (22.0-35.0) L 08/02/17 21:50 [place] % (Auto) 6.1 % (1.0-6.0) H 08/02/17 21:50 Eos % (Auto) 1.9 % (1.5-5.0) 08/02/17 21:50 Baso % (Auto) 0.1 % (0.0-3.0) 08/02/17 21:50 Gran # 5.32 (1.4-6.5) 08/02/17 21:50 Lymph # 1.6 (1.2-3.4) 08/02/17 21:50 [place] # 0.5 (0.1-0.6) 08/02/17 21:50 Eos # 0.1 (0.0-0.7) 08/02/17 21:50 Baso # 0.01 K/mm3 (0.0-2.0) 08/02/17 21:50 PT 11.7 Seconds (9.9-11.8) 08/02/17 21:50 INR 1.08 (0.93-1.08) 08/02/17 21:50 APTT 26.6 Seconds (23.7-30.8) 08/02/17 21:50 Sodium 138 mmol/L (132-148) 08/05/17 07:07 Potassium 4.1 mmol/L (3.6-5.0) 08/05/17 07:07 Chloride 102 mmol/L (98-107) 08/05/17 07:07 Carbon Dioxide 23 mmol/L (21-33) 08/05/17 07:07 Anion Gap 17 (10-20) 08/05/17 07:07 BUN 24 mg/dL (7-21) H 08/05/17 07:07 Creatinine 0.8 mg/dL (0.8-1.5) 08/05/17 07:07 Est GFR ( Amer) > 60 08/05/17 07:07 Est GFR (Non-Af Amer) > 60 08/05/17 07:07 POC Glucose (mg/dL) 336 mg/dL (65-110) H 08/05/17 11:44 Random Glucose 255 mg/dL (70-110) H 08/05/17 07:07 Hemoglobin A1c 10.0 % (4.2-6.5) H 08/02/17 21:50 Calcium 9.3 mg/dL (8.4-10.5) 08/05/17 07:07 Phosphorus 3.6 mg/dL (2.5-4.5) 08/05/17 07:07 Magnesium 1.7 mg/dL (1.7-2.2) 08/05/17 07:07 Total Bilirubin 1.1 mg/dL (0.2-1.3) 08/05/17 07:07 AST 34 U/L (17-59) 08/05/17 07:07 ALT 57 U/L (7-56) H 08/05/17 07:07 Alkaline Phosphatase 76 U/L (38-126) 08/05/17 07:07 Troponin I < 0.01 ng/mL 08/02/17 21:50 Total Protein 7.1 g/dL (5.8-8.3) 08/05/17 07:07 Albumin 4.2 g/dL (3.0-4.8) 08/05/17 07:07 Globulin 2.9 gm/dL 08/05/17 07:07 Albumin/Globulin Ratio 1.4 (1.1-1.8) 08/05/17 07:07 Triglycerides 156 mg/dL (35-160) 08/02/17 21:50 Cholesterol 128 mg/dL (130-200) L 08/02/17 21:50 LDL Cholesterol Direct 56 mg/dL (0-129) 08/02/17 21:50 HDL Cholesterol 42 mg/dL (29-60) 08/02/17 21:50 Blood Type B POSITIVE 08/02/17 21:50 Blood Type Confirm B POSITIVE 08/02/17 22:25 Antibody Screen Negative 08/02/17 21:50 BBK History Checked No verified bt 08/02/17 21:50 - Hospital Course Hospital Course: Mr. De Leon is a 76 year old male with PMH of CVAx3 without residual deficit, quintuple CABG, HTN, and DM who presented to ED on 08/03/17 with left sided weakness, slurred speech, and gait instability outside of tPA window. EKG showed normal sinus rhythm, troponin was negative. Neuro was consulted. Initial CT head without contrast showed no acute bleed. MRI showed acute 1cm focal CVA of right thalamus. Echo showed normal LVEF, no vegetations appreciated (see full report). Carotid US showed B/L ICA stenosis 20-39%. Patient continued on ASA, Plavix, and high dose statin. Patient had PT/OT and speech therapy services while inpatient with recommendation to continue rehabilitation in acute care facility. Patient was hypertensive in 180/90s at time of admission. Lopressor and Cozaar increased. BP reduced to 140/90s at time of discharge. Recommend continued home monitoring and follow up with PMD. Diabetes was also uncontrolled at time of admission with Hgb A1c of 10 and POC glucose in 280s. Levemir serially increased to 30 units nightly with ISS. Patient provided with diabetes education resources. Rehabilitation facility to continue adjustment of medication as needed. At time of discharge patient had no complaints. He is ambulating short distances with assistance. Patient received extensive counseling regarding importance of blood pressure and diabetes control. Patient to be discharged to [place] acute rehabilitation. He will continue Aspirin, Plavix, and statin as well as DM and HTN medications. He should follow up with PMD, Dr. Ward, and neurology upon discharge home. Discharge Exam - Head Exam Head Exam: ATRAUMATIC, NORMAL INSPECTION - Eye Exam Eye Exam: EOMI, Normal appearance Pupil Exam: NORMAL ACCOMODATION - ENT Exam ENT Exam: Mucous Membranes Moist - Neck Exam Neck exam: Full Rom - Respiratory Exam Respiratory Exam: Clear to PA & Lateral, UNREMARKABLE. absent: Rales, Rhonchi, Wheezes - Cardiovascular Exam Cardiovascular Exam: REGULAR RHYTHM, +S1, +S2 - GI/Abdominal Exam GI & Abdominal Exam: Normal Bowel Sounds, Soft. absent: Firm, Guarding, Rigid, Tenderness - Extremities Exam Extremities exam: normal inspection, pedal pulses present - Back Exam Back exam: NORMAL INSPECTION - Neurological Exam Neurological exam: Alert, Oriented x3 - Psychiatric Exam Psychiatric exam: Normal Affect, Normal Mood - Skin Skin Exam: Dry, Normal Color, Warm Discharge Plan - Discharge Medications Prescriptions: Aspirin [Aspirin Chewable] 81 mg PO DAILY #30 chew Atorvastatin [Lipitor] 40 mg PO DIN #30 tab Clopidogrel [Plavix] 75 mg PO DAILY #30 tab Insulin Detemir [Levemir] 30 unit SC HS #1 vial Losartan Potassium 50 mg PO BID #60 tablet Metoprolol Tartrate [Lopressor] 50 mg PO BID #60 tab - Follow Up Plan Condition: FAIR Disposition: REHAB FACILITY/REHAB UNIT Instructions: Ischemic Stroke (DC), Weakness (ED) Additional Instructions: 1. Patient to continue ASA/plavix 2. Continue medications as prescribed 3. Please adjust insulin dosage as needed 4. Patient to follow up with PMD and neurology within 1 week 5. Continue PT/ST/OT Referrals: Nico Ward MD [Primary Care Provider] - <Huma Powers - Last Filed: 08/05/17 13:48> Provider - Provider Date of Admission: 08/02/17 22:48 Attending physician: Huma Powers MD Primary care physician: Nico Ward MD Hospital Course - Lab Results Lab Results: Most Recent Lab Values WBC 9.2 10^3/ul (4.5-11.0) 08/05/17 07:07 RBC 5.04 10^6/uL (3.5-6.1) 08/05/17 07:07 Hgb 15.0 g/dL (14.0-18.0) 08/05/17 07:07 Hct 43.0 % (42.0-52.0) 08/05/17 07:07 MCV 85.3 fl (80.0-105.0) 08/05/17 07:07 MCH 29.8 pg (25.0-35.0) 08/05/17 07:07 MCHC 34.9 g/dl (31.0-37.0) 08/05/17 07:07 RDW 13.0 % (11.5-14.5) 08/05/17 07:07 Plt Count 256 10^3/uL (120.0-450.0) 08/05/17 07:07 MPV 9.3 fl (7.0-11.0) 08/05/17 07:07 Gran % 70.8 % (50.0-68.0) H 08/02/17 21:50 Lymph % (Auto) 21.1 % (22.0-35.0) L 08/02/17 21:50 [place] % (Auto) 6.1 % (1.0-6.0) H 08/02/17 21:50 Eos % (Auto) 1.9 % (1.5-5.0) 08/02/17 21:50 Baso % (Auto) 0.1 % (0.0-3.0) 08/02/17 21:50 Gran # 5.32 (1.4-6.5) 08/02/17 21:50 Lymph # 1.6 (1.2-3.4) 08/02/17 21:50 [place] # 0.5 (0.1-0.6) 08/02/17 21:50 Eos # 0.1 (0.0-0.7) 08/02/17 21:50 Baso # 0.01 K/mm3 (0.0-2.0) 08/02/17 21:50 PT 11.7 Seconds (9.9-11.8) 08/02/17 21:50 INR 1.08 (0.93-1.08) 08/02/17 21:50 APTT 26.6 Seconds (23.7-30.8) 08/02/17 21:50 Sodium 138 mmol/L (132-148) 08/05/17 07:07 Potassium 4.1 mmol/L (3.6-5.0) 08/05/17 07:07 Chloride 102 mmol/L (98-107) 08/05/17 07:07 Carbon Dioxide 23 mmol/L (21-33) 08/05/17 07:07 Anion Gap 17 (-20) 08/05/17 07:07 BUN 24 mg/dL (7-21) H 08/05/17 07:07 Creatinine 0.8 mg/dL (0.8-1.5) 08/05/17 07:07 Est GFR ( Amer) > 60 08/05/17 07:07 Est GFR (Non-Af Amer) > 60 08/05/17 07:07 POC Glucose (mg/dL) 336 mg/dL (65-110) H 08/05/17 11:44 Random Glucose 255 mg/dL (70-110) H 08/05/17 07:07 Hemoglobin A1c 10.0 % (4.2-6.5) H 08/02/17 21:50 Calcium 9.3 mg/dL (8.4-10.5) 08/05/17 07:07 Phosphorus 3.6 mg/dL (2.5-4.5) 08/05/17 07:07 Magnesium 1.7 mg/dL (1.7-2.2) 08/05/17 07:07 Total Bilirubin 1.1 mg/dL (0.2-1.3) 08/05/17 07:07 AST 34 U/L (17-59) 08/05/17 07:07 ALT 57 U/L (7-56) H 08/05/17 07:07 Alkaline Phosphatase 76 U/L (38-126) 08/05/17 07:07 Troponin I < 0.01 ng/mL 08/02/17 21:50 Total Protein 7.1 g/dL (5.8-8.3) 08/05/17 07:07 Albumin 4.2 g/dL (3.0-4.8) 08/05/17 07:07 Globulin 2.9 gm/dL 08/05/17 07:07 Albumin/Globulin Ratio 1.4 (1.1-1.8) 08/05/17 07:07 Triglycerides 156 mg/dL (35-160) 08/02/17 21:50 Cholesterol 128 mg/dL (130-200) L 08/02/17 21:50 LDL Cholesterol Direct 56 mg/dL (0-129) 08/02/17 21:50 HDL Cholesterol 42 mg/dL (29-60) 08/02/17 21:50 Blood Type B POSITIVE 08/02/17 21:50 Blood Type Confirm B POSITIVE 08/02/17 22:25 Antibody Screen Negative 08/02/17 21:50 BBK History Checked No verified bt 08/02/17 21:50 Attending/Attestation - Attestation I have personally seen and examined this patient.: Yes I have fully participated in the care of the patient.: Yes I have reviewed all pertinent clinical information, including history, physical exam and plan: Yes Notes (Text): 08/05/17 13:45 attending note; Patient seen and examined with resident. Patient is a 76 year old male with past medical history of prior CVA, HTN, DM, CABG presented to [facility] for left sided weakness and slurred speech. CT head showed no acute intracranial pathology. Brain MRI showed 1 cm focal diffusion restriction at the R thalamus c/w acute infarction. Dysarthria is improving; follow-up with speech therapy. Carotid Doppler showed 20-39% stenosis. Echo showed normal ejection fraction. Continue aspirin, Plavix, Lipitor. Hypertension; better controlled. Medications increased. Monitor closely. Diabetes; Still elevated. started on glipizide. Levemir dosage increased. Dietary education given. Patient was educated by diabetic nurse. Patient is strongly advised to follow- up fingerstick closely. Physical therapy evaluation appreciated. patient will be transferred to Acute rehabilitation at [facility] today. Case discussed with case preparer and liner in detail for discharge planning. Diagnosis; Acute right thalamic CVA Dysarthria Uncontrolled hypertension Uncontrolled diabetes Left hemiparesis
--- NOTE | 2017-08-05 13:39 | PN ---
NEUROLOGY PROGRESS NOTE DATE: SUBJECTIVE: The patient is lying on the bed, in no acute distress. Denies having any headache. Occasional dizziness when he tried to get up. He still has weakness and incoordination on the left side. PHYSICAL EXAMINATION VITAL SIGNS: His blood pressure is 128/74, heart rate is 76 per minute, breathing at the rate of 16 per minute, temperature is 98.5 degrees Fahrenheit. HEENT: Head is normocephalic and atraumatic. NECK: Supple. There are no carotid bruits. LUNGS: Clear. CARDIOVASCULAR: S1 and S2 audible with no murmurs. ABDOMEN: Soft and nontender with bowel sounds present. NEUROLOGIC: Mental Status: The patient is awake, alert, oriented to time, place, and person. Speech is fluent. Naming and repetition is normal. Memory and cognition are intact. Cranial nerve examination: Pupils are 3 mm bilaterally, reactive to light. Visual cohn are full. Extraocular movements are intact. There is decreased nasolabial fold on the left side. Motor examination: Tone is normal. There is left-sided hemiparesis noted with power about 3-4/5 on the left side and 5/5 on the right side. Gait is deferred at the moment. Plantars are upgoing on the left and downgoing on the right side. LABORATORY DATA: MRI of the brain shows 1 cm focal distribution restriction on the right thalamus consistent with acute infarction. He had carotid Dopplers, which shows no significant stenosis. He also had an echocardiogram, which shows no evidence of thrombus. IMPRESSION: Cerebrovascular accident involving the right thalamus, which appears to be lacunar in nature. RECOMMENDATIONS: 1. The patient to be continued on aspirin and Plavix. The patient was on Plavix earlier at home and aspirin was added during this hospitalization. 2. The patient is also to be continued on statin. Currently, he is on atorvastatin 40 mg daily. 3. The patient to have physical therapy for gait imbalance as well as for strengthening on the left side of the body. 4. The patient is a very good candidate for acute rehabilitation placement. 5. Please continue supportive care and the treatment. Thank you for the opportunity to participate in the care of this patient. Jaime Pearson MD
== END 2017-08-05 14:33 | DRG 65 ==
LOC: ED 21:30 → ERH 22:48 → 3RSO 08-03 01:07
PROVIDERS: ADMIT Internal Medicine; ATTEND Internal Medicine
DX: I63.9 Cerebral infarction, unspecified (principal); G81.94 Hemiplegia, unspecified affecting left nondominant side; R47.1 Dysarthria and anarthria; E11.65 Type 2 diabetes mellitus with hyperglycemia; I10 Essential (primary) hypertension; R29.700 NIHSS score 0; I65.23 Occlusion and stenosis of bilateral carotid arteries; Z91.19 Patient's noncompliance with other medical treatment and regimen; Z86.73 Personal history of transient ischemic attack (TIA), and cerebral infarction without residual deficits; Z95.1 Presence of aortocoronary bypass graft; Z79.02 Long term (current) use of antithrombotics/antiplatelets; Z79.4 Long term (current) use of insulin